=== PATIENT | female | born 1980 | race Caucasian/White ===

== ENCOUNTER 2017-02-20 08:00 | Outpatient (CLI) | payer MEDICAID ==
[2017-02-20 19:23] LABS: BASOPHILS # (AUTO) 0.1 10^3/uL (0.0-0.1); BASOPHILS % (AUTO) 1.2 %; EOSINOPHILS # (AUTO) 0.3 10^3/uL (0.0-0.7); EOSINOPHILS % (AUTO) 3.1 %; HCT - HEMATOCRIT 35.7 % (37.0-47.0); HGB - HEMOGLOBIN 11.5 g/dL (12.0-16.0); LYMPHOCYTES # (AUTO) 2.4 10^3/uL (1.5-3.5); LYMPHOCYTES % (AUTO) 24.2 %; MEAN CORPUSCULAR HEMOGLOBIN 25.2 pg (27.0-31.0); MEAN CORPUSCULAR HGB CONC 32.1 g/dL (32.0-36.0); MEAN CORPUSCULAR VOLUME 78.5 fL (81.0-99.0); MEAN PLATELET VOLUME 9.2 fL (7.9-10.8); MONOCYTES # (AUTO) 0.7 10^3/uL (0.0-1.0); MONOCYTES % (AUTO) 6.8 %; NEUTROPHILS # (AUTO) 6.5 10^3/uL (1.5-6.6); NEUTROPHILS % (AUTO) 64.7 %; RED BLOOD COUNT 4.55 10^6/uL (4.20-5.40); RED CELL DISTRIBUTION WIDTH 17.7 % (12.0-15.0); UNCORRECTED WHITE BLOOD COUNT 10.1 x10^3/uL; WHITE BLOOD COUNT 10.1 x10^3/uL (4.8-10.8)
[2017-02-20 20:34] LABS: ALBUMIN/GLOBULIN RATIO 1.1 (1.0-2.2); BILIRUBIN,TOTAL 0.5 mg/dL (0.2-1.0); BUN - BLOOD UREA NITROGEN 9 mg/dL (6-20); CALCIUM 9.2 mg/dL (8.5-10.3); CARBON DIOXIDE - CO2 24 mmol/L (21-32); CHLORIDE 104 mmol/L (101-111); CHOL/HDL RATIO 3.5 (<4.4); CHOLESTEROL 193 mg/dL; CREATININE 0.9 mg/dL (0.4-1.0); GFR - MDRD 71 (>89); GLUCOSE 125 mg/dL (70-100); HDL CHOLESTEROL 55 mg/dL; LDL/HDL RATIO 2.3 (<4.4); POTASSIUM 3.8 mmol/L (3.5-5.0); SODIUM 137 mmol/L (135-145); TOTAL PROTEIN 7.4 g/dL (6.7-8.2); TRIGLYCERIDES 62 mg/dL; VLDL CHOLESTEROL 12 mg/dL
== END 2017-02-20 08:01 | disposition home or self-care (01) ==
LOC: LAB.N 08:00
PROVIDERS: ATTEND Physician Assistant
DX: F31.9 Bipolar disorder, unspecified (principal)
CPT/HCPCS: 36415; 80053; 80061; 84443; 85025

== ENCOUNTER 2017-04-18 13:59 | Emergency (ER) | payer MEDICAID ==
--- NOTE | 2017-04-18 14:19 | ED Physician Documentation ---
PD HPI URI - Stated complaint Stated Complaint: THROAT,HEAD,SHLDR PX - Chief complaint Chief Complaint: Resp - History obtained from History obtained from: Patient - History of Present Illness Timing - onset: How many days ago (3) Timing duration: Days (3) Timing details: Abrupt onset, Still present Associated symptoms: Fever, Sore throat, Dry cough, Chest pain (right shoulder and chest pain today with coughing.) Contributing factors: COPD / asthma. No: Sick contact, Travel, Immunocompromised Similar symptoms before: Has not had sx before (has had URIs and asthma, but not chest/shoulder pain with it in the past.) Recently seen: Not recently seen Review of Systems Constitutional: reports: Fever, Chills, Myalgias Nose: reports: Rhinorrhea / runny nose, Congestion Throat: reports: Sore throat Cardiac: reports: Chest pain / pressure. denies: Palpitations Respiratory: reports: Dyspnea, Cough, Wheezing Skin: denies: Rash, Lesions Neurologic: reports: Generalized weakness. denies: Focal weakness, Numbness, Near syncope Immunocompromised: denies: Immunocompromised PD PAST MEDICAL HISTORY - Past Medical History Cardiovascular: None Respiratory: Asthma Neuro: None Endocrine/Autoimmune: None - Present Medications Home Medications: Ambulatory Orders Medication Instructions Recorded Confirmed Benzonatate [Tessalon] 100 mg PO TID PRN #25 capsule 04/18/17 Dexamethasone [Decadron] 4 mg PO DAILY #5 tablet 04/18/17 HYDROcod/ACETAM 5/325 [[place] 5/325] 1 tab PO Q6H PRN #15 tablet 04/18/17 - Allergies Allergies/Adverse Reactions: Allergies Allergy/AdvReac Type Severity Reaction Status Date / Time citric acid AdvReac Hives Verified 04/18/17 14:07 hydroxyzine HCl * AdvReac Hives Verified 04/18/17 14:07 [From Vistaril] hydroxyzine pamoate * AdvReac Hives Verified 04/18/17 14:07 [From Vistaril] meperidine HCl * AdvReac Hives Verified 04/18/17 14:07 [From Demerol] Penicillins AdvReac Hives Verified 04/18/17 14:07 PD ED PE NORMAL - Vitals Vital signs reviewed: Yes - General General: Alert and oriented X 3, No acute distress, Well developed/nourished - HEENT HEENT: Ears normal, Moist mucous membranes, Pharynx benign - Neck Neck: Supple, no meningeal sign, No adenopathy - Cardiac Cardiac: RRR, No murmur - Respiratory Respiratory: No: Clear bilaterally (wheezing diffusely, without coarse sounds.) - Abdomen Abdomen: Soft, Non tender - Back Back: No CVA TTP - Derm Derm: Normal color, Warm and dry - Extremities Extremities: No edema, No calf tenderness / cord - Neuro Neuro: Alert and oriented X 3, No motor deficit, Normal speech - Psych Psych: Normal mood, Normal affect Results - Vitals Vitals: Oxygen O2 Source Room air - Rads (name of study) chest Radiology: Prelim report reviewed (no acute infiltrates), EMP read contemporaneously (no PTX.) PD MEDICAL DECISION MAKING - ED course Complexity details: reviewed results, re-evaluated patient, considered differential, d/w patient Departure - Departure Disposition: Home, Self Care Clinical Impression: Acute exacerbation of COPD with asthma Upper respiratory infection Qualifiers: URI type: unspecified URI Qualified Code(s): J06.9 - Acute upper respiratory infection, unspecified Condition: Stable Record reviewed to determine appropriate education?: Yes Instructions: ED URI Viral W Wheezing Follow-Up: Nirali Best [employer] [Primary Care Provider] - Prescriptions: Benzonatate [Tessalon] 100 mg PO TID PRN #25 capsule PRN Reason: Cough Dexamethasone [Decadron] 4 mg PO DAILY #5 tablet HYDROcod/ACETAM 5/325 [[place] 5/325] 1 tab PO Q6H PRN #15 tablet PRN Reason: Pain Comments: Continue your Combivent inhaler at home. Add Decadron for inflammation and hydrocodone for pain and cough. Also use Tessalon for cough. Drink lots of fluids. This sounds like a viral illness and likely will improve over 5 or 6 days. Return if worsening or trouble breathing. Discharge Date/Time: 04/18/17 15:53
[2017-04-18] MEDS ORDERED: HYDROcod/ACETAM 5/325 MG TABLET ONE (14:44)
[2017-04-18] MEDS ORDERED: DEXAMETHASONE 10 MG/ML VIAL ONE (14:44)
[2017-04-18] MEDS ORDERED: BENZONATATE 100 MG CAPSULE PO ONE (14:44)
[2017-04-18] MEDS: DEXAMETHASONE 10 MG/ML VIAL PO STA (14:50)
[2017-04-18] MEDS ORDERED: IPRATROPIUM/ALBUTEROL 3 ML NEB INH ONE (14:50)
[2017-04-18] MEDS: IPRATROPIUM/ALBUTEROL 3 ML NEB INH STA (14:50)
[2017-04-18] MEDS: BENZONATATE 100 MG CAPSULE PO STA (14:50)
--- NOTE | 2017-04-18 15:00 | XRAY Preliminary Report ---
Exam: XR Chest 2 View PA/LAT IMPRESSION: Normal 2-view chest radiography. [facility] SITE ID: [id number]
[2017-04-18] MEDS: HYDROcod/ACETAM 5/325 MG TABLET PO STA (15:20)
--- NOTE | 2017-04-18 15:23 | XRAY Report ---
EXAM: CHEST RADIOGRAPHY EXAM DATE: 04/18/2017 02:49 PM. CLINICAL HISTORY: Right-sided chest pain. Cough for 5 days. COMPARISON: None. TECHNIQUE: 2 views. FINDINGS: Lungs/Pleura: No focal opacities evident. No pleural effusion. No pneumothorax. Normal volumes. Mediastinum: Heart and mediastinal contours are unremarkable. Other: Mild scoliosis. IMPRESSION: Normal 2-view chest radiography. [facility] Referring Provider Line: [phone] SITE ID: [id number]
[2017-04-18 15:49] VITALS: BP 103/66
== END 2017-04-18 15:53 | disposition home or self-care (01) ==
LOC: ED 13:59
DX: J44.1 Chronic obstructive pulmonary disease with (acute) exacerbation (principal); J06.9 Acute upper respiratory infection, unspecified
CPT/HCPCS: 71020; 94640; 99283; 99284; A9270; J7620

== ENCOUNTER 2018-05-03 15:15 | Outpatient (CLI) | payer MEDICAID ==
[2018-05-03 18:42] LABS: BASOPHILS # (AUTO) 0.1 10^3/uL (0.0-0.1); BASOPHILS % (AUTO) 1.4 %; EOSINOPHILS # (AUTO) 0.5 10^3/uL (0.0-0.7); EOSINOPHILS % (AUTO) 5.7 %; HGB - HEMOGLOBIN 10.8 g/dL (12.0-16.0); LYMPHOCYTES # (AUTO) 2.3 10^3/uL (1.5-3.5); LYMPHOCYTES % (AUTO) 26.4 %; MEAN CORPUSCULAR HEMOGLOBIN 23.7 pg (27.0-31.0); MEAN CORPUSCULAR HGB CONC 32.3 g/dL (32.0-36.0); MEAN CORPUSCULAR VOLUME 73.5 fL (81.0-99.0); MEAN PLATELET VOLUME 9.4 fL (7.9-10.8); MONOCYTES # (AUTO) 0.6 10^3/uL (0.0-1.0); MONOCYTES % (AUTO) 7.3 %; NEUTROPHILS # (AUTO) 5.2 10^3/uL (1.5-6.6); NEUTROPHILS % (AUTO) 59.2 %; PLT - PLATELET COUNT 386 10^3/uL (130-450); RED BLOOD COUNT 4.55 10^6/uL (4.20-5.40); RED CELL DISTRIBUTION WIDTH 18.9 % (12.0-15.0); WHITE BLOOD COUNT 8.8 x10^3/uL (4.8-10.8)
[2018-05-03 18:58] LABS: ALBUMIN 3.9 g/dL (3.2-5.5); ALBUMIN/GLOBULIN RATIO 1.1 (1.0-2.2); ALKALINE PHOSPHATASE 64 IU/L (42-121); ALT ALANINE AMINOTRANSFERASE 13 IU/L (10-60); AST ASPARTATE AMINOTRANSFERASE 15 IU/L (10-42); BILIRUBIN,TOTAL 0.6 mg/dL (0.2-1.0); BUN - BLOOD UREA NITROGEN 17 mg/dL (6-20); CALCIUM 8.9 mg/dL (8.5-10.3); CARBON DIOXIDE - CO2 21 mmol/L (21-32); CHLORIDE 108 mmol/L (101-111); CHOL/HDL RATIO 4.2 (<4.4); CHOLESTEROL 194 mg/dL; CREATININE 1.2 mg/dL (0.4-1.0); GFR - MDRD 51 (>89); GLUCOSE 81 mg/dL (70-100); HDL CHOLESTEROL 46 mg/dL; LDL CHOLESTEROL,CALCULATED 138 mg/dL; SODIUM 137 mmol/L (135-145); TOTAL PROTEIN 7.5 g/dL (6.7-8.2); VLDL CHOLESTEROL 10 mg/dL
== END 2018-05-03 15:16 | disposition home or self-care (01) ==
LOC: LAB.N 15:15
PROVIDERS: ATTEND Nurse Practitioner Gerontology
DX: G43.909 Migraine, unspecified, not intractable, without status migrainosus (principal); F41.8 Other specified anxiety disorders; F90.9 Attention-deficit hyperactivity disorder, unspecified type; F51.5 Nightmare disorder
CPT/HCPCS: 36415; 80053; 80061; 83721; 84443; 85025

== ENCOUNTER 2018-06-07 20:01 | Emergency (ER) | payer MEDICAID ==
[2018-06-07 20:35] LABS: BILIRUBIN,URINE NEGATIVE (NEGATIVE); GLUCOSE, URINE (UA) NEGATIVE (NEGATIVE); KETONES,URINE (UA) NEGATIVE (NEGATIVE); LEUKOCYTE ESTERASE, URINE TRACE (NEGATIVE); NITRITE,URINE NEGATIVE (NEGATIVE); OCCULT BLOOD,URINE LARGE (NEGATIVE); PH,URINE 6.5 PH (5.0-7.5); PROTEIN,URINE TRACE mg/dL (NEGATIVE); UROBILINOGEN,URINE 0.2 (NORMAL) E.U./dL (NORMAL)
[2018-06-07 20:37] LABS: CLARITY,URINE HAZY (CLEAR); HCG UR QUAL NEGATIVE
--- NOTE | 2018-06-07 20:40 | ED Physician Documentation ---
History of Present Illness - Stated complaint Stated Complaint: DIZZY/COUGH - Chief complaint Chief Complaint: General - History obtained from History obtained from: Patient, Family - History of Present Illness Timing: How many days ago (4) Pain level max: 0 Pain level now: 0 - Additonal information Additional information: 37-year-old female with history of COPD and bilateral tubal ligation here with complaint of sinus drainage and dry cough the past 4 days. She stated when she coughs it makes her feel dizzy and get a headache. When she is not coughing she has no headache or dizziness. Denies any fever, or diarrhea. She claims she has body aches and her menstrual cycle started yesterday. She is . Patient states she smoked 1 pack of cigarettes per day but she is trying to quit by using vaping. She also smokes pot on occasion. Patient denies any trauma, travel. Family at the bedside stated he was sick for 1 day last week Review of Systems Ten Systems: 10 systems reviewed and negative Constitutional: reports: Myalgias. denies: Fever, Chills Ears: denies: Ear pain Nose: reports: Rhinorrhea / runny nose, Congestion. denies: Epistaxis Throat: denies: Sore throat Cardiac: denies: Chest pain / pressure Respiratory: reports: Cough. denies: Dyspnea GI: denies: Abdominal Pain, Nausea, Vomiting, Diarrhea Neurologic: denies: Generalized weakness, Near syncope, Headache PD PAST MEDICAL HISTORY - Past Medical History Past Medical History: Yes Cardiovascular: None Respiratory: Asthma Endocrine/Autoimmune: None Psych: Depression, Anxiety, Bipolar disorder, Other - Past Surgical History Past Surgical History: Yes /[employer]: Tubal ligation - Present Medications Home Medications: Ambulatory Orders Medication Instructions Recorded Confirmed ARIPiprazole [Aripiprazole] 5 mg PO DAILY #14 tablet 05/11/17 Atomoxetine HCl 80 mg PO DAILY #14 capsule 05/11/17 Bupropion HCl [Bupropion HCl Sr] 150 mg PO DAILY #14 tab 05/11/17 Prazosin [Minipress] 2 tab PO QPM #28 capsule 05/11/17 Azithromycin [Zithromax Tri-Pato] 500 mg PO DAILY #5 tablet 06/07/18 Pseudoephedrine [Sudafed] 30 mg PO Q6H 3 Days #12 tablet 06/07/18 - Allergies Allergies/Adverse Reactions: Allergies Allergy/AdvReac Type Severity Reaction Status Date / Time citric acid AdvReac Hives Verified 06/07/18 20:11 hydroxyzine HCl * AdvReac Hives Verified 06/07/18 20:11 [From Vistaril] hydroxyzine pamoate * AdvReac Hives Verified 06/07/18 20:11 [From Vistaril] meperidine HCl * AdvReac Hives Verified 06/07/18 20:11 [From Demerol] Penicillins AdvReac Hives Verified 06/07/18 20:11 - Social History Does the pt smoke?: No Smoking Status: Never smoker Does the pt drink ETOH?: Yes Does the pt have substance abuse?: No - Immunizations Immunizations are current?: Yes PD ED PE NORMAL - Vitals Vital signs reviewed: Yes - General General: Alert and oriented X 3, No acute distress, Well developed/nourished - HEENT HEENT: EOMI, Moist mucous membranes, Pharynx benign - Neck Neck: Supple, no meningeal sign - Cardiac Cardiac: RRR, No murmur - Respiratory Respiratory: No respiratory distress, Clear bilaterally - Abdomen Abdomen: Normal bowel sounds, Soft, Non tender, Non distended - Back Back: No CVA TTP - Derm Derm: Warm and dry - Extremities Extremities: No deformity, No tenderness to palpate, Normal ROM s pain, No edema - Neuro Neuro: Alert and oriented X 3, Normal speech - Psych Psych: Normal mood, Normal affect Results - Vitals Vitals: Vital Signs - 24 hr 06/07/18 06/07/18 20:05 20:30 Temperature 36.5 C 36.6 C Heart Rate 65 71 Respiratory 16 12 Rate Blood Pressure 117/74 129/79 O2 Saturation 100 97 Oxygen O2 Source Room air - Labs Labs: Laboratory Tests 06/07/18 06/07/18 20:29 20:40 Urine Color YELLOW Urine Clarity HAZY Urine pH 6.5 Ur Specific [place] 1.025 Urine Protein TRACE Urine Glucose (UA) NEGATIVE Urine Ketones NEGATIVE Urine Occult Blood LARGE H Urine Nitrite NEGATIVE Urine Bilirubin NEGATIVE Urine Urobilinogen 0.2 (NORMAL) Ur Leukocyte Esterase TRACE H Urine RBC 11-25 H Urine WBC 0-3 Ur Squamous Epith Cells MOD Squamous H Urine Bacteria Rare Urine Mucus Moderate Strands Ur Microscopic Review INDICATED Urine Culture Comments NOT INDICATED Urine HCG, Qual NEGATIVE Influenza A (Rapid) Negative Influenza B (Rapid) Negative PD MEDICAL DECISION MAKING - ED course Complexity details: reviewed results, re-evaluated patient, considered differential (Sinusitis, bronchitis, pneumonia, influenza,), d/w patient, d/w family ED course: 2118 patient sitting the chair in no acute distress and nontoxic-appearing. Patient family informed of negative influenza test but possibly with a new right middle lobe pneumonia versus atelectasis that is small. Patient will be discharged on a ZithromaxFor possible pneumonia and Sudafed for her sinus congestion.Patient denies history of hypertension. Departure - Departure Disposition: Home, Self Care Clinical Impression: Sinusitis Qualifiers: Sinusitis location: frontal Chronicity: acute Recurrence: non-recurrent Qualified Code(s): J01.10 - Acute frontal sinusitis, unspecified Pneumonia Qualifiers: Pneumonia type: due to unspecified organism Laterality: right Lung location: mi ddle lobe of lung Qualified Code(s): J18.1 - Lobar pneumonia, unspecified organism Condition: Stable Instructions: ED Pneumonia Adult, ED Sinusitis Abx Tx Prescriptions: Azithromycin [Zithromax Tri-Pato] 500 mg PO DAILY #5 tablet Pseudoephedrine [Sudafed] 30 mg PO Q6H 3 Days #12 tablet Comments: Stop smoking and stop vaping. Drink lots of fluids. OTC Tylenol or Motrin for pain or fever. Take the prescribed antibiotic. Only take the decongestant for 3 days. Follow-up with your primary doctor in 1 week. If worse return to the emergency room.
[2018-06-07 20:44] LABS: BACTERIA,URINE Rare /HPF (None Seen); SQUAMOUS EPITHELIAL CELL,UR MOD Squamous (<= Few)
[2018-06-07 20:45] LABS: MUCUS,URINE Moderate Strands
--- NOTE | 2018-06-07 21:16 | XRAY Report ---
Reason: cough Procedure Date: 06/07/2018 Accession Number: [id number] / [id number] Procedure: XR - Chest 2 View X-Ray CPT Code: 59417 FULL RESULT: EXAM: CHEST RADIOGRAPHY EXAM DATE: 06/07/2018 08:56 PM. CLINICAL HISTORY: Cough. COMPARISON: CHEST 2 VIEW PA/LAT 04/18/2017 2:40 PM. TECHNIQUE: 2 views. FINDINGS: Lungs/Pleura: There is a small new density at the lateral right costophrenic angle which appears to be in the lateral right middle lobe. The left lung is clear. Lung volumes are normal. Negative for pleural effusion and pneumothorax. Mediastinum: Heart and mediastinal contours are unremarkable. Other: None. IMPRESSION: 1. New small right middle lobe density, possible peripheral atelectasis or small developing pneumonia. [facility]
[2018-06-07 21:32] VITALS: BP 128/78
== END 2018-06-07 21:31 | disposition home or self-care (01) ==
LOC: ED 20:01
DX: J01.10 Acute frontal sinusitis, unspecified (principal); J18.1 Lobar pneumonia, unspecified organism; F17.200 Nicotine dependence, unspecified, uncomplicated; J44.9 Chronic obstructive pulmonary disease, unspecified
CPT/HCPCS: 71046; 81001; 81003; 81025; 87086; 87275; 87276; 99283

== ENCOUNTER 2018-08-28 08:00 | Outpatient (CLI) | payer MEDICAID ==
[2018-08-28 12:18] LABS: CALCIUM 9.3 mg/dL (8.5-10.3)
== END 2018-08-28 23:59 | disposition home or self-care (01) ==
LOC: LAB.N 08:00
PROVIDERS: ATTEND Nurse Practitioner Gerontology
DX: R94.4 Abnormal results of kidney function studies (principal)
CPT/HCPCS: 36415; 80048

== ENCOUNTER 2018-12-27 08:00 | Outpatient (CLI) | payer MEDICAID ==
[2018-12-27 14:49] LABS: BASOPHILS # (AUTO) 0.1 10^3/uL (0.0-0.1); BASOPHILS % (AUTO) 1.8 %; EOSINOPHILS # (AUTO) 0.4 10^3/uL (0.0-0.7); HGB - HEMOGLOBIN 9.9 g/dL (12.0-16.0); LYMPHOCYTES % (AUTO) 32.2 %; MEAN CORPUSCULAR HEMOGLOBIN 21.8 pg (27.0-31.0); MEAN CORPUSCULAR HGB CONC 31.4 g/dL (32.0-36.0); MEAN CORPUSCULAR VOLUME 69.2 fL (81.0-99.0); MEAN PLATELET VOLUME 9.1 fL (7.9-10.8); MONOCYTES # (AUTO) 0.5 10^3/uL (0.0-1.0); MONOCYTES % (AUTO) 8.4 %; NEUTROPHILS # (AUTO) 3.2 10^3/uL (1.5-6.6); NEUTROPHILS % (AUTO) 51.6 %; PLT - PLATELET COUNT 393 10^3/uL (130-450); RED BLOOD COUNT 4.57 10^6/uL (4.20-5.40); RED CELL DISTRIBUTION WIDTH 20.7 % (12.0-15.0); WHITE BLOOD COUNT 6.2 x10^3/uL (4.8-10.8)
[2018-12-27 14:50] LABS: ALBUMIN 3.6 g/dL (3.2-5.5); ALBUMIN/GLOBULIN RATIO 0.9 (1.0-2.2); ALKALINE PHOSPHATASE 62 IU/L (42-121); ALT ALANINE AMINOTRANSFERASE 13 IU/L (10-60); AST ASPARTATE AMINOTRANSFERASE 16 IU/L (10-42); BILIRUBIN,TOTAL 0.5 mg/dL (0.2-1.0); BUN - BLOOD UREA NITROGEN 21 mg/dL (6-20); CARBON DIOXIDE - CO2 22 mmol/L (21-32); CHLORIDE 108 mmol/L (101-111); CHOL/HDL RATIO 3.9 (<4.4); CHOLESTEROL 177 mg/dL; CREATININE 0.9 mg/dL (0.4-1.0); GFR - MDRD 70 (>89); GLUCOSE 66 mg/dL (70-100); HDL CHOLESTEROL 45 mg/dL; LDL CHOLESTEROL,CALCULATED 119 mg/dL; LDL/HDL RATIO 2.6 (<4.4); SODIUM 138 mmol/L (135-145); TOTAL PROTEIN 7.5 g/dL (6.7-8.2); VLDL CHOLESTEROL 13 mg/dL
[2018-12-27 15:48] LABS: PLATELET ESTIMATE, MANUAL NORMAL (130-450,000) (NORMAL); PLATELET MORPHOLOGY 1+ LARGE PLATELETS (NORMAL)
== END 2018-12-27 23:59 | disposition home or self-care (01) ==
LOC: LAB.N 08:00
DX: F43.10 Post-traumatic stress disorder, unspecified (principal)
CPT/HCPCS: 36415; 80053; 80061; 83721; 84443; 85025

== ENCOUNTER 2019-02-08 08:52 | Outpatient (CLI) | payer MEDICAID ==
--- NOTE | 2019-02-08 15:54 | XRAY Report ---
Reason: KNEE JOINT PAIN,LEFT Procedure Date: 02/08/2019 Accession Number: [id number] / [id number] Procedure: XR - Knee 3 View LT CPT Code: FULL RESULT: EXAM: LEFT KNEE RADIOGRAPHY EXAM DATE: 02/08/2019 09:38 AM. CLINICAL HISTORY: KNEE JOINT PAIN, LEFT. COMPARISON: None. TECHNIQUE: 3 views. FINDINGS: Bones: No fractures or bone lesions. Joints: Suprapatellar joint effusion. Effusion. No subluxations. Soft Tissues: Unremarkable. IMPRESSION: Suprapatellar joint effusion. No fracture or subluxation. [facility]
== END 2019-02-08 08:53 | disposition home or self-care (01) ==
LOC: DI 08:52
PROVIDERS: ATTEND Family Medicine
DX: M25.562 Pain in left knee (principal); M25.462 Effusion, left knee

== ENCOUNTER 2019-04-19 09:04 | Outpatient (CLI) | payer MEDICAID ==
--- NOTE | 2019-04-19 09:41 | XRAY Report ---
Reason: THORACIC BACK PAIN Procedure Date: 04/19/2019 Accession Number: [id number] / [id number] Procedure: XR - Thoracic Spine 3 View CPT Code: FULL RESULT: EXAM: THORACIC SPINE RADIOGRAPHY EXAM DATE: 04/19/2019 09:14 AM. CLINICAL HISTORY: Thoracic back pain. COMPARISON: CHEST 2 VIEW 06/07/2018 8:47 PM. TECHNIQUE: 2 views. FINDINGS: Alignment: No change in partially evaluated S-shaped thoracolumbar scoliosis. Bones: No fractures or bone lesions. Disks: Normal. Disk heights are maintained. Soft Tissues: Normal. The visualized lungs and cardiomediastinal silhouette are normal. IMPRESSION: 1. Redemonstration of S-shaped thoracolumbar scoliosis; the lumbar component cannot be evaluated. 2. Otherwise negative examination. [facility]
== END 2019-04-19 09:05 | disposition home or self-care (01) ==
LOC: DI 09:04
PROVIDERS: ATTEND Family Medicine
DX: M41.85 Other forms of scoliosis, thoracolumbar region (principal)
CPT/HCPCS: 72072

== ENCOUNTER 2019-05-11 13:38 | Outpatient (CLI) | payer MEDICAID ==
--- NOTE | 2019-05-13 09:43 | Ultrasound Report ---
Reason: PELVIC PAIN, HX OF TUBAL LIGATION Procedure Date: 05/11/2019 Accession Number: [id number] / [id number] Procedure: US - Pelvic w/Transvaginal CPT Code: FULL RESULT: EXAM: PELVIC ULTRASOUND EXAM DATE: 05/11/2019 02:29 PM. CLINICAL HISTORY: Pelvic pain, history of tubal ligation. COMPARISON: None. TECHNIQUE: Realtime transabdominal pelvic scan performed to identify the uterus and adnexa and as an overview of other pelvic structures, followed by transvaginal scan to provide greater detail of the uterus and adnexa, with static image documentation. FINDINGS: Uterus: 9.2 x 5.1 x 6.3 cm, volume 153 cc. Anteverted position. Normal overall size and echotexture. Masses: None. Endometrium: 21 mm. Trace endometrial fluid collection with right fundal soft tissue density suggesting a polyp, measured at 1.1 x 1.1 x 2.0 cm. Cervix: Within normal limits. Right Ovary: 3.2 x 2.8 x 3.9 cm, volume 17.4 cc. Irregular cystic density with peripheral vascularity, measuring 2.3 x 1.4 x 1.6 cm. Left Ovary: 2.7 x 1.1 x 2.2 cm, volume 3.2 cc. Normal echotexture and blood flow. Free Fluid: Small simple free fluid collection in the posterior cul-de-sac. Other: None. IMPRESSION: 1. Trace endometrial free fluid collection, with rounded nodular density at the right fundus, possibly a polyp. 2. Cystic density with slightly irregular wall and peripheral vascularity identified in the right ovary. Suggest correlation with serum beta hCG level to exclude potential for an ectopic . [facility] The call report notification system was initiated by Dr. Mynor Casey at 09:36 AM on 05/13/2019. ADDENDUM: 05/13/19 09:51 The above call report findings were discussed with Leora Torres by Dr. Mynor Casey at 09:51 AM on 05/13/2019.
== END 2019-05-11 13:39 | disposition home or self-care (01) ==
LOC: DI 13:38
PROVIDERS: ATTEND Obstetrics & Gynecology
DX: R10.2 Pelvic and perineal pain (principal); Z98.51 Tubal ligation status; N83.201 Unspecified ovarian cyst, right side
CPT/HCPCS: 76830; 76856

== ENCOUNTER 2019-05-14 09:21 | Outpatient (CLI) | payer MEDICAID | END 2019-05-14 09:22 | disposition home or self-care (01) | LOC: LAB 09:21 | PROVIDERS: ATTEND Obstetrics & Gynecology | DX: N83.209 Unspecified ovarian cyst, unspecified side (principal) | CPT/HCPCS: 36415; 84702 ==

== ENCOUNTER 2019-07-04 10:58 | Outpatient (CLI) | payer MEDICAID ==
[2019-07-04 11:24] LABS: HGB - HEMOGLOBIN 10.9 g/dL (12.0-16.0); MEAN CORPUSCULAR HEMOGLOBIN 23.1 pg (27.0-31.0); MEAN CORPUSCULAR HGB CONC 30.3 g/dL (32.0-36.0); MEAN CORPUSCULAR VOLUME 76.3 fL (81.0-99.0); MEAN PLATELET VOLUME 9.4 fL (7.9-10.8); RED BLOOD COUNT 4.72 10^6/uL (4.20-5.40); RED CELL DISTRIBUTION WIDTH 19.9 % (12.0-15.0); WHITE BLOOD COUNT 8.1 x10^3/uL (4.8-10.8)
[2019-07-04 12:12] LABS: URIC ACID 4.1 mg/dL (2.6-7.2)
[2019-07-04 12:24] LABS: CRP - C-REACTIVE PROTEIN < 1.0 mg/dL (0-1.0)
--- NOTE | 2019-07-04 18:02 | XRAY Report ---
Reason: ANKLE JOINT PAIN Procedure Date: 07/04/2019 Accession Number: [id number] / [id number] Procedure: XR - Ankle 2 View BILAT CPT Code: Final Report FULL RESULT: EXAMS: 1. RIGHT ANKLE RADIOGRAPHY. 2. LEFT ANKLE RADIOGRAPHY. EXAM DATE: 07/04/2019 12:13 PM. CLINICAL HISTORY: Bilateral ankle joint pain. COMPARISON: None. TECHNIQUE: 2 views each ankle. FINDINGS: Right Ankle: Bones: Normal. No fractures or bone lesions. Joints: Normal. No effusion. No subluxations. The ankle mortise is normally aligned. Soft Tissues: Unremarkable. Left Ankle: Bones: Normal. No fractures or bone lesions. Joints: Normal. No effusion. No subluxations. The ankle mortise is normally aligned. Soft Tissues: Unremarkable. IMPRESSION: Normal bilateral ankle radiography. [facility]
[2019-07-04 18:39] LABS: RHEUMATOID FACTOR NEGATIVE (Negative)
[2019-07-08 10:21] LABS: ANA SCREEN Positive
== END 2019-07-04 10:59 | disposition home or self-care (01) ==
LOC: LAB 10:58
PROVIDERS: ATTEND Family Medicine
DX: M25.579 Pain in unspecified ankle and joints of unspecified foot (principal)
CPT/HCPCS: 36415; 84550; 85027; 85651; 86038; 86140; 86200; 86430

== ENCOUNTER 2019-07-23 08:00 | Outpatient (CLI) | payer MEDICAID ==
[2019-07-23 19:11] LABS: ALBUMIN 3.8 g/dL (3.2-5.5); ALBUMIN/GLOBULIN RATIO 1.1 (1.0-2.2); BILIRUBIN,TOTAL 0.5 mg/dL (0.2-1.0); TOTAL PROTEIN 7.3 g/dL (6.7-8.2)
== END 2019-07-23 23:59 | disposition home or self-care (01) ==
LOC: LAB.N 08:00
PROVIDERS: ATTEND Nurse Practitioner Psychiatric/Mental Health
DX: F43.10 Post-traumatic stress disorder, unspecified (principal)
CPT/HCPCS: 36415; 80053; 82306; 82607; 84443

== ENCOUNTER 2019-12-02 10:14 | Outpatient (CLI) | payer MEDICAID | END 2019-12-02 10:15 | disposition home or self-care (01) | LOC: NS 10:14 | PROVIDERS: ATTEND Family Medicine | DX: Z71.3 Dietary counseling and surveillance (principal); E66.9 Obesity, unspecified; Z68.37 Body mass index [BMI] 37.0-37.9, adult | CPT/HCPCS: 97802 ==

== ENCOUNTER 2019-12-16 09:42 | Outpatient (CLI) | payer MEDICAID | END 2019-12-16 09:43 | disposition home or self-care (01) | LOC: NS 09:42 | PROVIDERS: ATTEND Family Medicine | DX: Z71.3 Dietary counseling and surveillance (principal); E66.9 Obesity, unspecified; Z68.37 Body mass index [BMI] 37.0-37.9, adult | CPT/HCPCS: 97802 ==

== ENCOUNTER 2020-01-20 12:45 | Outpatient (CLI) | payer MEDICAID | END 2020-01-20 12:46 | disposition home or self-care (01) | LOC: NS 12:45 | PROVIDERS: ATTEND Family Medicine | DX: Z71.3 Dietary counseling and surveillance (principal); E66.9 Obesity, unspecified; Z68.37 Body mass index [BMI] 37.0-37.9, adult | CPT/HCPCS: 97803 ==

== ENCOUNTER 2020-06-13 08:23 | Outpatient (CLI) | payer MEDICAID ==
--- NOTE | 2020-06-13 10:57 | MRI Report ---
PROCEDURE: Lumbar Spine W/O INDICATIONS: LUMBAR RADICULOPATHY TECHNIQUE: Noncontrast sagittal T1 spin echo and T2 fast echo, sagittal STIR, axial T1 and T2 fast spin echo thr ough the lumbar spine. In cases with scoliosis, additional coronal T2 fast spin echo may be performe d. COMPARISON: None. FINDINGS: Image quality: Excellent. Alignment and Curvature: There is normal bony alignment. In the absence of plain films or compariso n it is assumed that there are 5 nonrib-bearing lumbar vertebral bodies, and that axial imaging was o btained from L2 L3-L5 S1. Bone Marrow: Marrow is of normal overall signal. No acute vertebral body compression fractures. Spinal Cord: Conus medullaris terminates at the L1-L2 level. Visualized cord demonstrates normal si gnal and size. Paraspinous Soft Tissues: No paravertebral masses. T12-L1: Normal in appearance. Imaged in sagittal plane only. L1-L2: Normal in appearance. Imaged in sagittal plane only. L2-L3: No canal stenosis or foraminal stenosis. L3-L4: No canal stenosis or foraminal stenosis. L4-L5: Diffuse posterior disc bulge. Mild facet hypertrophy. Mild canal stenosis. Left foraminal an nulus tear associated with disc bulge and mild left foraminal stenosis. L5-S1: Facet hypertrophy. No canal stenosis. Mild bilateral foraminal stenosis. IMPRESSION: 1. Please note that the numbering system assumes 5 nonrib-bearing lumbar vertebral bodies. If surgery is considered, suggest careful correlation for correct surgical level. 2. At L4-L5, there is mild canal stenosis secondary to disc bulge and facet hypertrophy. 3. Also at L4-L5, there is left foraminal annulus tear associated with disc bulge and mild left eliza inal narrowing. Question: Does this patient have a left L4 radiculitis? 4. Facet hypertrophy at L4-L5 and L5-S1. Reviewed by: Bulmaro Baird MD on 06/13/2020 10:56 AM PST Approved by: Bulmaro Baird MD on 06/13/2020 10:56 AM PST Station ID: [id number]
== END 2020-06-13 08:24 | disposition home or self-care (01) ==
LOC: DI 08:23
PROVIDERS: ATTEND Family Medicine
DX: M51.36 Other intervertebral disc degeneration, lumbar region (principal); M47.816 Spondylosis without myelopathy or radiculopathy, lumbar region; M48.061 Spinal stenosis, lumbar region without neurogenic claudication; M47.817 Spondylosis without myelopathy or radiculopathy, lumbosacral region
CPT/HCPCS: 72148

== ENCOUNTER 2020-06-30 12:51 | Outpatient (CLI) | payer MEDICAID ==
--- NOTE | 2020-06-30 16:02 | MRI Report ---
PROCEDURE: Thoracic Spine W/O INDICATIONS: THORACIC PAIN TECHNIQUE: Noncontrast sagittal T1 spine echo and T2 fast spin echo, sagittal STIR, axial T1 and T2 fast spin ec ho through the thoracic spine. COMPARISON: None. FINDINGS: Image quality: Excellent. Alignment and Curvature: There is normal bony alignment. Bone Marrow: Marrow is of normal overall signal. No acute vertebral body compression fractures. Spinal Cord: Visualized spinal cord is normal in size. There is an approximate 1-2 mm focus of incre ased signal within the intramedullary portion of the cord within the thoracic spine. Paraspinous Soft Tissues: No paravertebral masses. Mild bilateral pleural effusions. Miscellaneous: On axial images, foramina appear widely patent at all scanned levels. Multilevel dis c desiccation is present. Posterior central protrusion with slight indentation of the anterior thecal sac is present at T6-7. IMPRESSION: 1. Posterior central protrusion at T6-7 with slight indentation of the anterior thecal sac. 2. 1 to 2 mm focus of increased intramedullary signal within the thoracic cord as above. Given size, overall appearance is suggestive of prominence of the central canal, as seen with congenital variatio n, as opposed to syrinx. 3. Mild bilateral pleural effusions. Reviewed by: Jimena Guadarrama MD on 06/30/2020 4:00 PM PST Approved by: Jimena Guadarrama MD on 06/30/2020 4:00 PM PST Station ID: [id number]
== END 2020-06-30 12:52 | disposition home or self-care (01) ==
LOC: DI 12:51
PROVIDERS: ATTEND Physician Assistant
DX: M51.24 Other intervertebral disc displacement, thoracic region (principal)
CPT/HCPCS: 72146

== ENCOUNTER 2020-07-30 08:39 | Outpatient (CLI) | payer MEDICAID ==
--- NOTE | 2020-07-30 14:13 | CT Report ---
PROCEDURE: CHEST WO INDICATIONS: BILATERAL PLEURAL EFFUSION TECHNIQUE: Noncontrast 5 mm thick sections acquired from the pulmonary apices to the posterior costophrenic angl es. 7 mm thick coronal and sagittal MIP reformats were then acquired. For radiation dose reduction, the following was used: automated exposure control, adjustment of mA and/or kV according to patient size. COMPARISON: Chest x-ray 06/08/2018, MRI thoracic spine 06/30/2020 FINDINGS: Image quality: Excellent. Lungs and pleura: No acute air space opacities. Minimal bilateral effusions are noted, decreased com pared to prior MR exam. Central and peripheral airways are patent and normal in caliber. 6 mm nodule is present along the right minor fissure on series 4 image 135. Mediastinum: Heart size is normal. No pericardial effusion. No mediastinal adenopathy by size crit eria. Thoracic aorta and central pulmonary arteries are normal in size. Esophagus is normal in sly lottie. No hiatal hernia. Bones and chest wall: No suspicious bony lesions. No vertebral body compression fractures. No axil kuldeep or supraclavicular adenopathy by size criteria. The thyroid is normal in size. Abdomen: Visualized upper abdominal solid organs and bowel loops appear normal in the absence of con trast. IMPRESSION: Minimal bilateral pleural effusion, decreased compared to prior exam. 6 mm nodule in the right minor fissure is noted. Is overall nonspecific and no priors are available f or comparison. Recommend interval follow-up below based on size and initial visualization date. Fleischner Society criteria for SOLID lung nodule followup. Nodule size (mm) * <6 * Low-risk patient: No follow-up needed * High-risk patient: Optional CT at 12 months; if no change, no further follow-up * 6-8 * Low-risk patient: Initial follow-up CT at 6-12 months, then optional CT at 18-24 months. * High-risk patient: Initial follow-up CT at CT at 6-[address] 18-24 months. * >8 single nodule * Low-risk patient: CT, PET or biopsy at 3 months. * High-risk patient: Same as for low-risk pts. * >8 multiple nodules * Low-risk patient: CT at 3-6 months, then optional CT at 18-24 months * High-risk patient: CT at 3-6 months, then CT at 18-24 months Reviewed by: Jimena Guadarrama MD on 07/30/2020 2:12 PM PST Approved by: Jimena Guadarrama MD on 07/30/2020 2:12 PM PST Station ID: [id number]
== END 2020-07-30 08:40 | disposition home or self-care (01) ==
LOC: DI 08:39
PROVIDERS: ATTEND Physician Assistant
DX: J90 Pleural effusion, not elsewhere classified (principal); R91.1 Solitary pulmonary nodule
CPT/HCPCS: 71250

== ENCOUNTER 2021-02-02 13:17 | Outpatient (CLI) | payer MEDICAID ==
[2021-02-02] MEDS ORDERED: IOVERSOL 320 100 ML VIAL IVP ONE ×2 (13:40→16:51)
--- NOTE | 2021-02-02 15:40 | CT Report ---
PROCEDURE: CHEST W INDICATIONS: BILATERAL PLEURAL EFFUSIONS CONTRAST: IV CONTRAST: Optiray 320 ml: 100 PO CONTRAST: *NO PO CONTRAST TECHNIQUE: After the administration of intravenous contrast, images were acquired from the pulmonary apices to t he posterior costophrenic angles. Multiplanar MIP reformats were acquired. For radiation dose reduc tion, the following was used: automated exposure control, adjustment of mA and/or kV according to pa tient size. COMPARISON: Prior CT scanning 07/30/2020.. FINDINGS: Image quality: Excellent. Lungs and pleura: No acute air space opacities. The previously present bilateral small pleural effus ions which had reduced now have slightly increased measuring approximately 1.2 cm in maximal thicknes s. A definite pulmonary nodule is not present and there is a thin band of possible pleural fluid or s light pleural focal thickening at the minor fissure on the right. This is identical to the prior appe arance. No pneumothorax. Central and peripheral airways are patent and normal in caliber. Mediastinum: Heart size is at the upper limits of normal. There is a small pericardial effusion. No mediastinal or hilar adenopathy by size criteria. Thoracic aorta and central pulmonary arteries are normal in size. Esophagus is normal in caliber. No hiatal hernia. Bones and chest wall: No suspicious bony lesions. No vertebral body compression fractures. No axil kuldeep or supraclavicular adenopathy by size criteria. The thyroid is normal in size and there are no incidental findings.. Abdomen: Visualized upper abdominal solid organs appear normal. Upper abdominal bowel loops are nor mal in caliber. IMPRESSION: Heart size at upper limits of normal, very small pericardial effusion. Small recurrent bilateral pleu ral effusions now measuring only approximately 1.2 cm in maximal thickness. No evidence of pulmonary solid mass lesion or pleural mass lesion. The amount of pleural fluid present is insufficient for saf e thoracentesis. Episodic mild cardiogenic pleural effusion may explain this appearance. No infection or neoplasm found. Reviewed by: Dalton Barnes MD on 02/02/2021 3:39 PM PDT Approved by: Dalton Barnes MD on 02/02/2021 3:39 PM PDT Station ID: [id number]
== END 2021-02-02 13:18 | disposition home or self-care (01) ==
LOC: DI 13:17
PROVIDERS: ATTEND Physician Assistant Medical
DX: J90 Pleural effusion, not elsewhere classified (principal); I31.3 Pericardial effusion (noninflammatory)
CPT/HCPCS: 71260; Q9967

== ENCOUNTER 2021-03-31 07:55 | Outpatient (CLI) | payer MEDICAID | END 2021-03-31 07:56 | disposition home or self-care (01) | LOC: DI 07:55 | PROVIDERS: ATTEND Physician Assistant Medical | DX: I31.3 Pericardial effusion (noninflammatory) (principal); R00.1 Bradycardia, unspecified | CPT/HCPCS: 93306 ==

== ENCOUNTER 2021-04-09 08:46 | Outpatient (CLI) | payer MEDICAID ==
[2021-04-09 09:04] LABS: BASOPHILS # (AUTO) 0.1 10^3/uL (0.0-0.1); BASOPHILS % (AUTO) 1.3 %; EOSINOPHILS # (AUTO) 0.3 10^3/uL (0.0-0.7); EOSINOPHILS % (AUTO) 4.6 %; HCT - HEMATOCRIT 37.1 % (37.0-47.0); HGB - HEMOGLOBIN 11.1 g/dL (12.0-16.0); LYMPHOCYTES # (AUTO) 2.9 10^3/uL (1.5-3.5); LYMPHOCYTES % (AUTO) 43.7 %; MEAN CORPUSCULAR HEMOGLOBIN 22.8 pg (27.0-31.0); MEAN CORPUSCULAR HGB CONC 29.9 g/dL (32.0-36.0); MEAN CORPUSCULAR VOLUME 76.3 fL (81.0-99.0); MEAN PLATELET VOLUME 10.3 fL (7.9-10.8); MONOCYTES # (AUTO) 0.6 10^3/uL (0.0-1.0); MONOCYTES % (AUTO) 8.5 %; NEUTROPHILS # (AUTO) 2.8 10^3/uL (1.5-6.6); NEUTROPHILS % (AUTO) 41.6 %; PLT - PLATELET COUNT 378 10^3/uL (130-450); RED BLOOD COUNT 4.86 10^6/uL (4.20-5.40); RED CELL DISTRIBUTION WIDTH 19.4 % (12.0-15.0); WHITE BLOOD COUNT 6.7 x10^3/uL (4.8-10.8)
[2021-04-09 10:13] LABS: ALBUMIN 3.6 g/dL (3.2-5.5); ALKALINE PHOSPHATASE 63 IU/L (42-121); ALT ALANINE AMINOTRANSFERASE 24 IU/L (10-60); AST ASPARTATE AMINOTRANSFERASE 21 IU/L (10-42); BILIRUBIN,TOTAL 0.3 mg/dL (0.2-1.0); BUN - BLOOD UREA NITROGEN 15 mg/dL (6-20); CARBON DIOXIDE - CO2 22 mmol/L (21-32); CHLORIDE 109 mmol/L (101-111); CHOL/HDL RATIO 5.9 (<4.4); CHOLESTEROL 202 mg/dL; GFR - MDRD 62 (>89); GLUCOSE 90 mg/dL (70-100); HDL CHOLESTEROL 34 mg/dL; LDL CHOLESTEROL,CALCULATED 148 mg/dL; LDL/HDL RATIO 4.4 (<4.4); POTASSIUM 4.4 mmol/L (3.5-5.0); SODIUM 138 mmol/L (135-145); TOTAL PROTEIN 7.1 g/dL (6.7-8.2); TRIGLYCERIDES 98 mg/dL; VLDL CHOLESTEROL 20 mg/dL
[2021-04-09 10:23] LABS: THYROID STIMULATING HORMONE 1.98 uIU/mL (0.34-5.60)
== END 2021-04-09 08:47 | disposition home or self-care (01) ==
LOC: LAB 08:46
PROVIDERS: ATTEND Physician Assistant Medical
DX: Z00.00 Encounter for general adult medical examination without abnormal findings (principal); D64.9 Anemia, unspecified
CPT/HCPCS: 36415; 80050; 80061; 83721

== ENCOUNTER 2021-09-12 12:39 | Outpatient (CLI) | payer MEDICAID ==
[2021-09-12 13:37] LABS: RHEUMATOID FACTOR NEGATIVE (Negative)
== END 2021-09-12 12:40 | disposition home or self-care (01) ==
LOC: LAB 12:39
PROVIDERS: ATTEND Internal Medicine Cardiovascular Disease
DX: I31.9 Disease of pericardium, unspecified (principal)
CPT/HCPCS: 36415; 85651; 86140; 86430; 86850

== ENCOUNTER 2021-09-14 15:25 | Outpatient (CLI) | payer MEDICAID ==
--- NOTE | 2021-09-16 11:36 | Mammography Report ---
BILATERAL DIGITAL SCREENING MAMMOGRAM 3D/2D: 09/14/2021 CLINICAL: Baseline exam. Routine screening. No prior exams were available for comparison. There are scattered fibroglandular elements in both br easts. There is a focal asymmetry in the right breast at 3 o'clock posterior depth. No other significant masses, calcifications, or other findings are seen in either breast. IMPRESSION: INCOMPLETE: NEEDS ADDITIONAL IMAGING EVALUATION The focal asymmetry in the right breast is indeterminate. Spot compression views with possible ultra sound are recommended. This exam was interpreted at Station ID: [id number]. NOTE: For mammograms, a report in lay terms will be sent to the patient. Approximately 15% of breast malignancies will not be visualized mammographically. In the management of a palpable breast mass, a negative mammogram must not discourage biopsy of a clinically suspicious lesion. Electronically Signed By: Brenda Barksdale M.D. lk/:09/15/2021 09:09:13 ACR BI-RADS Category 0: Incomplete 3340F PARENCHYMAL PATTERN: (A) - The breast(s) demonstrate(s) scattered fibroglandular densities. BI-RADS CATEGORY: (0) - 0 Mammo and [place] [id number] Immediate follow-up LATERALITY: (R)
== END 2021-09-14 15:26 | disposition home or self-care (01) ==
LOC: DI.N 15:25
DX: Z12.31 Encounter for screening mammogram for malignant neoplasm of breast (principal)

== ENCOUNTER 2021-11-17 08:00 | Outpatient (CLI) | payer MEDICAID | END 2021-11-20 16:52 | disposition home or self-care (01) | LOC: LAB.R 08:00 | PROVIDERS: ATTEND Physician Assistant Medical | DX: J06.9 Acute upper respiratory infection, unspecified (principal); Z20.822 Contact with and (suspected) exposure to COVID-19 ==

== ENCOUNTER 2022-03-17 10:53 | Outpatient (CLI) | payer MEDICAID | END 2022-03-17 10:54 | disposition home or self-care (01) | LOC: RT 10:53 | PROVIDERS: ATTEND Physician Assistant Medical | DX: J45.909 Unspecified asthma, uncomplicated (principal) | CPT/HCPCS: 94010; 94729 ==

== ENCOUNTER 2022-05-20 11:41 | Outpatient (CLI) | payer MEDICAID ==
[2022-05-20 12:21] LABS: CHOL/HDL RATIO 6.2 (<4.4); CHOLESTEROL 210 mg/dL; HDL CHOLESTEROL 34 mg/dL; LDL CHOLESTEROL,CALCULATED 159 mg/dL; LDL/HDL RATIO 4.7 (<4.4); TRIGLYCERIDES 85 mg/dL; VLDL CHOLESTEROL 17 mg/dL
[2022-05-20 12:59] LABS: ESTIMATED AVERAGE GLUCOSE 117 mg/dL (70-100); HEMOGLOBIN A1c% 5.7 % (4.27-6.07)
== END 2022-05-20 11:42 | disposition home or self-care (01) ==
LOC: LAB 11:41
PROVIDERS: ATTEND Physician Assistant Medical
DX: F43.12 Post-traumatic stress disorder, chronic (principal); L50.9 Urticaria, unspecified; Z79.899 Other long term (current) drug therapy
CPT/HCPCS: 36415; 80061; 81599; 83036; 83721; 86003

== ENCOUNTER 2022-08-10 09:33 | Emergency (ER) | payer MEDICAID ==
[2022-08-10 09:42] VITALS: BP 120/69
--- NOTE | 2022-08-10 10:17 | XRAY Report ---
PROCEDURE: Chest 2 View X-Ray INDICATIONS: cough TECHNIQUE: 2 views of the chest were acquired. COMPARISON: Chest CT 02/02/2021 FINDINGS: Surgical changes and devices: None. Lungs and pleura: No pleural effusions or pneumothorax. Lungs are clear. Mediastinum: Mediastinal contours are normal. Heart size is normal. Bones and chest wall: No suspicious bony abnormalities. Soft tissues appear unremarkable. IMPRESSION: No acute radiographic abnormality. Reviewed by: Filemon Sanders MD on 08/10/2022 10:16 AM [facility] Approved by: Filemon Sanders MD on 08/10/2022 10:16 AM [facility] Station ID: [id number]
== END 2022-08-10 10:31 | disposition left against medical advice (07) ==
LOC: ED 09:33
DX: Z53.21 Procedure and treatment not carried out due to patient leaving prior to being seen by health care provider (principal)
CPT/HCPCS: 93005

== ENCOUNTER 2022-09-05 09:58 | Outpatient (CLI) | payer OTHER ==
--- NOTE | 2022-09-05 12:33 | XRAY Report ---
PROCEDURE: Thoracic Spine 2 View INDICATIONS: THORACIC PAIN TECHNIQUE: 2 views of the thoracic spine were acquired. COMPARISON: 04/19/2019 FINDINGS: Bones: No fractures or dislocations. No suspicious bony lesions. 12 pairs of ribs are noted, and a ppear intact where visualized. Mild convex left thoracolumbar scoliosis noted with a Viera angle of 10.4 degrees as measured from the superior endplates of T9 through L1. No vertebral anomalies Soft tissues: No paravertebral stripe thickening. IMPRESSION: Stable thoracolumbar levoscoliosis Reviewed by: Lai Hawkins MD on 09/05/2022 11:32 AM [place] Approved by: Lai Hawkins MD on 09/05/2022 11:32 AM [facility] Station ID: [id number]
--- NOTE | 2022-09-05 12:34 | XRAY Report ---
PROCEDURE: Lumbar Spine 2 View INDICATIONS: LUMBAR PAIN TECHNIQUE: 2 views of the lumbar spine were acquired. COMPARISON: None. FINDINGS: Bones: 5 [id number] vertebrae are present. There is normal bony alignment. No vertebral body compression fractures. No suspicious bony lesions. Mild disc space narrowing and hypertrophic facet joints noted at the thoracolumbar junction as well a s the lower lumbar spine. Soft tissues: Overlying bowel gas pattern is normal. No suspicious soft tissue calcifications. IMPRESSION: Mild degenerative disc disease and arthropathy Reviewed by: Lai Hawkins MD on 09/05/2022 11:33 AM [facility] Approved by: Lai Hawkins MD on 09/05/2022 11:33 AM [facility] Station ID: [id number]
== END 2022-09-05 09:59 | disposition home or self-care (01) ==
LOC: DI 09:58
PROVIDERS: ATTEND Internal Medicine Cardiovascular Disease
DX: M51.36 Other intervertebral disc degeneration, lumbar region (principal); M47.816 Spondylosis without myelopathy or radiculopathy, lumbar region; M41.9 Scoliosis, unspecified

== ENCOUNTER 2022-12-31 18:23 | Outpatient (CLI) | payer MEDICAID | END 2022-12-31 18:24 | disposition critical access hospital (66) | LOC: EMS 18:23 | DX: M54.50 Low back pain, unspecified (principal) | CPT/HCPCS: A0425; A0429; A0999 ==

== ENCOUNTER 2022-12-31 18:37 | Emergency (ER) | payer MEDICAID ==
[2022-12-31] MEDS ORDERED: DEXAMETHASONE 10 MG/ML VIAL PO STA (21:08)
[2022-12-31] MEDS ORDERED: CHERRY SYRUP 10 ML UDC PO ONE (21:08)
[2022-12-31] MEDS ORDERED: KETOROLAC 60 MG/2 ML VIAL IM STA (21:08)
--- NOTE | 2022-12-31 21:09 | ED Physician Documentation ---
PD HPI BACK PAIN - Stated complaint Stated Complaint: BACK PX - Chief complaint Chief Complaint: Back Pain - History obtained from History obtained from: Patient - History of Present Illness Timing - onset: Today Timing - duration: Hours Timing - details: Abrupt onset, Still present Location: Lower, Right Quality: Pain, Spasm, Sharp Associated symptoms: No: Fever, Weakness, Numbness, Incontinent of urine, Unable to urinate, Hematuria, Incontinent of stool Improves with: Rest, Position, Meds Worsened by: Movement, Lifting, Twisting Contributing factors: Lifting, Twisting Similar symptoms before: Has not had sx before Recently seen: Not recently seen - Additional information Additional information: Saskia Lou is a 42-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 She is having some trouble moving around the pain is so bad. She is not having numbness or tingling to the perineum she is not having radiation of pain or numbness down her legs. She has not had any other specific injury to her back and she does have a known history of scoliosis. 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 - Present Medications Home Medications: Ambulatory Orders Medication Instructions Recorded Confirmed ARIPiprazole [Aripiprazole] 5 mg PO DAILY #14 tablet 05/11/17 Atomoxetine HCl 80 mg PO DAILY #14 capsule 05/11/17 Prazosin [Minipress] 2 tab PO QPM #28 capsule 05/11/17 buPROPion HCL [Bupropion HCl Sr] 150 mg PO DAILY #14 tab 05/11/17 Azithromycin [Zithromax Tri-Pato] 500 mg PO DAILY #5 tablet 06/07/18 Pseudoephedrine [Sudafed] 30 mg PO Q6H 3 Days #12 tablet 06/07/18 Cyclobenzaprine [Flexeril] 10 mg PO TID PRN #20 tablet 12/31/22 HYDROcod/ACETAM 5/325 [Orange 5/325] 1 - 2 tablet PO Q6H PRN #14 tablet 12/31/22 - Allergies Allergies/Adverse Reactions: Allergies Allergy/AdvReac Type Severity Reaction Status Date / Time citric acid AdvReac Hives Verified 08/10/22 09:42 hydroxyzine HCl * AdvReac Hives Verified 08/10/22 09:42 [From Vistaril] hydroxyzine pamoate * AdvReac Hives Verified 08/10/22 09:42 [From Vistaril] meperidine HCl * AdvReac Hives Verified 08/10/22 09:42 [From Demerol] Penicillins AdvReac Hives Verified 08/10/22 09:42 - Social History Does the pt smoke?: No Smoking Status: Never smoker Does the pt drink ETOH?: Yes Does the pt have substance abuse?: No - Immunizations Immunizations are current?: Yes PD ED PE NORMAL - Vitals Vital signs reviewed: Yes (normal ) - General General: Alert and oriented X 3, No acute distress, Well developed/nourished - HEENT HEENT: Atraumatic, PERRL, EOMI - Neck Neck: Supple, no meningeal sign, No bony TTP - Cardiac Cardiac: RRR, No murmur - Respiratory Respiratory: No respiratory distress, Clear bilaterally - Abdomen Abdomen: Normal bowel sounds, Soft, Non tender, Non distended, No organomegaly - Back Back: No CVA TTP, Other (tenderness to the lower lumbar spine and paraspinous muscles on the right side. ) - Derm Derm: Normal color, Warm and dry, No rash - Extremities Extremities: No deformity, No edema - Neuro Neuro: Alert and oriented X 3, gravity prospecting observer 2-12 intact, No motor deficit, No sensory deficit, Normal speech Eye Opening: Spontaneous Motor: Obeys Commands Verbal: Oriented GCS Score: 15 - Psych Psych: Normal mood, Normal affect Results - Vitals Vitals: Vital Signs - 24 hr 12/31/22 12/31/22 18:38 22:13 Temperature 36.6 C Heart Rate 72 71 Respiratory 16 16 Rate Blood Pressure 113/79 102/74 O2 Saturation 99 99 Oxygen O2 Source Room air PD Medical Decision Making - ED course Complexity details: considered differential, d/w patient ED course: 42-year-old female with acute lumbar muscle spasm after excessive work is administered dexamethasone and Toradol with improvement in her pain.We will place her on a short course of pain medication a muscle relaxant. Departure - Departure Disposition: 01 Home, Self Care Clinical Impression: Acute lumbar myofascial strain Qualifiers: Encounter type: initial encounter Qualified Code(s): S39.012A - Strain of muscle, fascia and tendon of lower back, initial encounter Condition: Stable Instructions: ED Sprain Strain Lumbar Follow-Up: Kaylynn Aquino PA-C [Primary Care Provider] - Prescriptions: Cyclobenzaprine [Flexeril] 10 mg PO TID PRN #20 tablet PRN Reason: Spasms HYDROcod/ACETAM 5/325 [Orange 5/325] 1 - 2 tablet PO Q6H PRN #14 tablet PRN Reason: Pain Comments: Saskia, today it looks like you have strained your back from the excessive work you did last week. This will usually take 2 to 5 days to clear up and a bit of rest is in order. Do not forget to do some range of motion stretching to your back. I have E scribed some pain medication a muscle relaxant to the [facility] in [place]. Expectations with treatment are improvement in your pain improvement in your range of motion and eventual resolution of your pain. Discharge Date/Time: 12/31/22 22:19
[2022-12-31] MEDS ORDERED: HYDROcod/ACET 5/325 Prepack 4 PO STA (21:57)
[2022-12-31] MEDS ORDERED: CYCLOBENZAPRINE 10 MG Prepack 2 PO PRN (21:57)
[2022-12-31 22:15] VITALS: BP 102/74
== END 2022-12-31 22:19 | disposition home or self-care (01) ==
LOC: ED 18:37
DX: S39.012A Strain of muscle, fascia and tendon of lower back, initial encounter (principal); X50.9XXA Other and unspecified overexertion or strenuous movements or postures, initial encounter; Y99.0 Civilian activity done for income or pay
CPT/HCPCS: 96372; 99283; A9270

== ENCOUNTER 2023-01-19 10:45 | Outpatient (CLI) | payer MEDICAID ==
--- NOTE | 2023-01-19 15:36 | XRAY Report ---
PROCEDURE: Lumbar Spine 2 View INDICATIONS: LOW BACK PAIN TECHNIQUE: 2 views of the lumbar spine were acquired. COMPARISON: X-ray lumbar spine 09/05/2022 FINDINGS: Bones: 5 [id number] vertebrae are present. There is trace retrolisthesis of L3 on L4. Minimal disc and foraminal narrowing at L5-S1. No vertebral body compression fractures. No suspicious bony l esions. Soft tissues: Overlying bowel gas pattern is normal. No suspicious soft tissue calcifications. IMPRESSION: Minimal disc and foraminal narrowing at L5-S1. Reviewed by: Jimena Guadarrama MD on 01/19/2023 3:34 PM PDT Approved by: Jimena Guadarrama MD on 01/19/2023 3:34 PM PDT Station ID: [id number]
== END 2023-01-19 10:46 | disposition home or self-care (01) ==
LOC: DI 10:45
PROVIDERS: ATTEND Physician Assistant Medical
DX: M51.36 Other intervertebral disc degeneration, lumbar region (principal); M51.37 Other intervertebral disc degeneration, lumbosacral region; M48.07 Spinal stenosis, lumbosacral region; M48.061 Spinal stenosis, lumbar region without neurogenic claudication

== ENCOUNTER 2023-06-15 17:46 | Outpatient (CLI) | payer MEDICAID ==
--- NOTE | 2023-06-16 08:18 | MRI Report ---
PROCEDURE: LUMBAR SPINE WO INDICATIONS: LOW BACK PAIN TECHNIQUE: Noncontrast sagittal T1 spin echo and T2 fast echo, sagittal STIR, axial T1 and T2 fast spin echo thr ough the lumbar spine. In cases with scoliosis, additional coronal T2 fast spin echo may be performe d. COMPARISON: Lumbar spine MRI dated 06/13/2020. Lumbar spine plain films dated 09/05/2022 FINDINGS: Image quality: Excellent. Alignment and Curvature: Trace retrolisthesis of L3 on L4 and L4 on L5. Bone Marrow: Marrow is of normal overall signal. No acute vertebral body compression fractures. Spinal Cord: Conus medullaris terminates at the L1-L2 level. Visualized cord demonstrates normal si gnal and size. Paraspinous Soft Tissues: No paravertebral masses. T12-L1: Normal in appearance. L1-L2: Normal in appearance. L2-L3: Normal in appearance. L3-L4: Mild chronic disc height loss. Minimal disc bulge. Facet hypertrophy. No canal stenosis. L4-L5: Interval development of mild disc height loss. Development of broad-based right paracentral disc protrusion with posterior deviation of the right L5 nerve root in the right lateral recess. Bila teral facet hypertrophy. Mild to moderate central canal stenosis. Mild to moderate bilateral foramina l stenosis. L5-S1: Facet hypertrophy. Development of a right paracentral disc protrusion which mildly impinges on the right S1 nerve root in the right lateral recess. Additionally, there is a shallow inferior rig ht paracentral disc extrusion which also exerts some mass effect on the right S1 nerve root. Mild lynn ateral foraminal stenosis. IMPRESSION: 1. There is mild underlying multilevel facet arthropathy. 2. At L4-L5, a broad-based right paracentral disc protrusion posteriorly now deviates the right L5 ne rve root in the right lateral recess. Recommend correlation for presence or absence of right L5 sympt omatology 3. Development of a small right paracentral disc protrusion with associated flat inferior disc extrus ion, both of which mildly impinge on the right S1 nerve root in the right lateral recess. Recommend c orrelation for presence or absence of right S1 symptomatology. Reviewed by: Bulmaro Baird MD on 06/16/2023 8:17 AM PST Approved by: Bulmaro Baird MD on 06/16/2023 8:17 AM PST Station ID: [id number]
== END 2023-06-15 17:47 | disposition home or self-care (01) ==
LOC: DI 17:46
PROVIDERS: ATTEND Physician Assistant Medical
DX: M47.816 Spondylosis without myelopathy or radiculopathy, lumbar region (principal); M51.26 Other intervertebral disc displacement, lumbar region